=== PATIENT | male | born 1995 | race Native Hawaiian/Other Pacific Islander ===

== ENCOUNTER 2023-09-03 13:55 | Outpatient (AMB) | payer OTHER, SELFPAY ==
--- NOTE | 2023-09-03 14:00 | MHC.PC.OV ---
Vital Signs 09/03/23 14:02 Height 5 ft 4 in Weight 96 lb 4 oz BMI 16.5 BP 110/78 Blood Pressure Location Lt brachial Position Sitting Pulse 96 Pulse Source Pulse Oximeter Pulse Oximetry (%) 98 Oxygen Delivery Method Room Air Intake Visit Reasons: New Patient/ Requesting PE/NEEDS PHQ9+THRIVE Intake Note: Patient is a new patient here to establish care for Heart murmur, Asthma, Scoliosis of the spine and neck, High blood pressure, Migraine, developmental delay, cyst in bone of left shoulder. Transferring care from Dr Montes De Oca([facility]). Medical records have not been requested and have not received. Motor Block Mechanic Required: No Aircraft Mechanic Structures: Present Accompanied by: Mother Allergies Penicillins Allergy (Intermediate, Verified 09/03/23 14:53) Rash Medication List - Last Reconciled 09/03/23 by Matthew Murray MD Unobtainable Tobacco use date assessed: 09/03/23 Dental Screening Dental Screen Date: 09/03/23 Did you have a dental visit in the last 12 months?: Yes Did you have a dental problem in the last 6 months where you did not have access to dental care?: No Was dental information given to patient?: Patient has dentist HPI New Patient/ Requesting PE/NEEDS PHQ9+THRIVE HPI Details 28-year-old male presents to the office to establish his care and requesting a physical. Patient is accompanied by his mother. Patient has learning disability, developmental disability since childhood. He communicates very little. His mother is speaking on his behalf. He is disabled. Mother is requesting social worker to help take him to different appointments. He lives with his sister. Needs assistance for cooking. Patient also does not take care of his personal hygiene well and needs to be constantly reminded. As a child he was diagnosed with scoliosis and a heart murmur. His mother is worried about the stability of the C-spine. Patient spends most of his time at home watching TV or playing video games. [facility] Medical History Developmental disability Learning disability Surgical History No pertinent past surgical history Family History Other Mental health disorder Substance use disorder Social History Housing: House Alcohol intake: never Patient Tobacco Use Status: Never used Tobacco e-Cigarette/Vaping Use: Never Used Second Hand Smoke Exposure: No service: No Current occupational status: disabled Cognitive needs: No Hearing needs: No Vision needs: Yes (glasses) Questionnaire PHQ-9 Over the last 2 weeks, how often have you been bothered by any of the following problems? 1. Little interest or pleasure in doing things: not at all 2. Feeling down, depressed, or hopeless: not at all 3. Trouble falling or staying asleep, or sleeping too much: not at all 4. Feeling tired or having little energy: not at all 5. Poor appetite or overeating: not at all 6. Feeling bad about yourself - or that you are a failure or have let yourself or your family down: not at all 7. Trouble concentrating on things, such as reading the newspaper or watching television: not at all 8. Moving or speaking so slowly that other people could have noticed. Or the opposite - being so fidgety or restless that you have been moving around a lot more than usual: not at all 9. Thoughts that you would be better off or of hurting yourself in some way: not at all Total score: 0 Depression Screening Interpretation: Negative Depression Screening Done: Yes Source: Developed by Drs. Allen Ozuna, Christina Becah, Edgard Delong and colleagues, with an educational luma from [employer]. Thrive Questionnaire Date Thrive assessed: 09/03/23 I am a: Patient What is your living situation today?: I have a steady place to live Within the past 12 months, did the food you bought not last and you didn't have the money to get more?: Never true Within the past 12 months, did you worry whether your food would run out before you got money to buy more?: Never true Do you have trouble paying for medicines?: No Do you have trouble getting transportation to medical appointments?: Yes Do you have trouble paying your heating and electricity bill?: No Do you have trouble taking care of your child, family member or friend?: No Do you have trouble with day-to-day activities such as bathing, preparing meals, shopping, managing finances, etc.?: No Are you currently unemployed and looking for a job?: No Are you interested in more education?: No Currently or been in a relationship where the following occur: no concerns reported THRIVE Score: 1 AUDIT C Alcohol Use Questionnaire (AUDIT-C) 1. How often do you have a drink containing alcohol?: Never Total Score: 0 FAWN-7 AMB Questionnaire FAWN-7 Date FAWN - 7 assessed: 09/03/23 Feeling nervous, anxious, or on edge: 1 = Several days Not being able to stop or control worryin = Not at all Worrying too much about different things: 0 = Not at all Trouble relaxin = Not at all Being so restless that it is hard to sit still: 0 = Not at all Becoming easily annoyed or irritable: 1 = Several days (depending on situation) Feeling afraid as if something awful might happen: 0 = Not at all Total FAWN-7 score (0-4 normal; 5-9 mild; 10-14 moderate; 15-21 severe): 2 Source: Developed by Drs. Allen Ozuna, Christina Beach, Edgard Delong and colleagues, with an educational luma from [employer]. Physical exam (Primary Care) Vital Signs: Last Vital Signs Pulse 96 09/03/23 14:02 BP 110/78 09/03/23 14:02 Pulse Ox 98 09/03/23 14:02 Oxygen Delivery Method Room Air 09/03/23 14:02 Care Plan Goal for BP management: Blood pressure is in range. BMI result Body Mass Index 16.5 BMI Assessment/Plan discussion: Low (High-calorie nutritional drinks suggested.) Tobacco/Smoking Status: Tobacco use Status Tobacco use date assessed 09/03/23 09/03/23 14:16 Patient Tobacco Use Status Never used Tobacco 09/03/23 14:16 e-Cigarette/Vaping Use Never Used 09/03/23 14:16 PHQ-9: PHQ-9 Score PHQ-9: Total score 0 09/03/23 14:16 Depression Screening Interpretation: Negative Thrive Assessment: Date of Thrive Assessment Date Thrive assessed 09/03/23 09/03/23 14:16 Currently or been in a relationship where the following occur: no concerns reported Const Other: Does not verbalize answers. Able to say hello and thank you. General: cooperative and healthy appearing Nutritional Appearance: well nourished Limitations: no limitations HENMT Head: Yes normal to inspection Eyes General: appearance normal, both eyes and all related structures Neck Other: C-spine: No tenderness. Neck: Yes normal visual inspection and Yes full ROM Chest Chest palpation & inspection: normal palpation of entire chest wall Resp Effort & Inspection: normal respiratory effort Cardio Other: S1-S2. No heart murmur appreciated. GI Inspection: Yes normal to inspection Palpation (GI): Soft to palpation and No hepatosplenomegaly present Percussion: Yes normal to percussion Auscultation: normal bowel sounds Back/Spine/Pelvis Other: No CVA tenderness. Minimal scoliosis appreciated Assessment and Plan Assessment & Plan (1) Developmental disability: Code(s): F89 - Unspecified disorder of psychological development Plan: Condition has been documented. (2) Learning disability: Code(s): F81.9 - Developmental disorder of scholastic skills, unspecified Plan: Condition has been documented. guidance services coordinator requested. (3) Scoliosis: Code(s): M41.9 - Scoliosis, unspecified Plan: X-ray of the thoracolumbar spine and C-spine has been requested. This is to document scoliosis. Coding Level of Care Code New Pt Prev Care 18-39yr(94111 Diagnoses Developmental disability F89 Learning disability F81.9 Scoliosis M41.9
[2023-09-03 14:02] VITALS: BP 110/78; PULSE 96; O2SAT 98; BMI 16.5
== END 2023-09-03 14:50 | disposition home or self-care (01) ==
PROVIDERS: PCP Nurse Practitioner Family; Visit Provider Internal Medicine
DX: Z00.00 Encounter for general adult medical examination without abnormal findings (principal); F89 Unspecified disorder of psychological development; M41.9 Scoliosis, unspecified; F81.9 Developmental disorder of scholastic skills, unspecified
CPT/HCPCS: 99385

== ENCOUNTER 2023-09-03 15:09 | Outpatient (REF) | payer OTHER, SELFPAY ==
--- NOTE | ~2023-09-03 | XR_ITS ---
EXAMINATION: XR CERVICAL SPINE, THORACIC SPINE, LUMBAR SPINE RADIOGRAPHS CLINICAL INFORMATION: Scoliosis unspecified. COMPARISON: None available. TECHNIQUE: 3 views of the cervical spine. 3 views of the thoracic spine. 3 views of the lumbar spine. FINDINGS: Cervical Spine: Cervical vertebral body heights and disc space heights are preserved. Alignment maintained. Mild spondylosis in the [id number]-vm-[id number] cervical spine. Thoracic Spine: Mild multilevel degenerative changes in the thoracic spine. Thoracic vertebral body heights are preserved. Minimal thoracolumbar scoliosis. Lumbar Spine: Surgical clips in the right upper quadrant of the abdomen. Facet arthritis in the lower lumbar spine. Lumbar vertebral body heights and alignment are preserved. Mild multilevel lumbar spondylosis. Lumbar disc space heights are preserved. XR/XR lumbar spine 2-3V IMPRESSION: 1. Mild multilevel degenerative changes in the cervical, thoracic and lumbar spine. 2. Facet arthritis in the lower lumbar spine. 3. Minimal thoracolumbar scoliosis.
--- NOTE | ~2023-09-03 | XR_ITS ---
EXAMINATION: XR CERVICAL SPINE, THORACIC SPINE, LUMBAR SPINE RADIOGRAPHS CLINICAL INFORMATION: Scoliosis unspecified. COMPARISON: None available. TECHNIQUE: 3 views of the cervical spine. 3 views of the thoracic spine. 3 views of the lumbar spine. FINDINGS: Cervical Spine: Cervical vertebral body heights and disc space heights are preserved. Alignment maintained. Mild spondylosis in the [id number]-mc-uswht cervical spine. Thoracic Spine: Mild multilevel degenerative changes in the thoracic spine. Thoracic vertebral body heights are preserved. Minimal thoracolumbar scoliosis. Lumbar Spine: Surgical clips in the right upper quadrant of the abdomen. Facet arthritis in the lower lumbar spine. Lumbar vertebral body heights and alignment are preserved. Mild multilevel lumbar spondylosis. Lumbar disc space heights are preserved. XR/XR cervical spine 3V IMPRESSION: 1. Mild multilevel degenerative changes in the cervical, thoracic and lumbar spine. 2. Facet arthritis in the lower lumbar spine. 3. Minimal thoracolumbar scoliosis.
--- NOTE | ~2023-09-03 | XR_ITS ---
EXAMINATION: XR CERVICAL SPINE, THORACIC SPINE, LUMBAR SPINE RADIOGRAPHS CLINICAL INFORMATION: Scoliosis unspecified. COMPARISON: None available. TECHNIQUE: 3 views of the cervical spine. 3 views of the thoracic spine. 3 views of the lumbar spine. FINDINGS: Cervical Spine: Cervical vertebral body heights and disc space heights are preserved. Alignment maintained. Mild spondylosis in the [id number]-td-[id number] cervical spine. Thoracic Spine: Mild multilevel degenerative changes in the thoracic spine. Thoracic vertebral body heights are preserved. Minimal thoracolumbar scoliosis. Lumbar Spine: Surgical clips in the right upper quadrant of the abdomen. Facet arthritis in the lower lumbar spine. Lumbar vertebral body heights and alignment are preserved. Mild multilevel lumbar spondylosis. Lumbar disc space heights are preserved. XR/XR thoracic spine 3V IMPRESSION: 1. Mild multilevel degenerative changes in the cervical, thoracic and lumbar spine. 2. Facet arthritis in the lower lumbar spine. 3. Minimal thoracolumbar scoliosis.
[2023-09-03 17:26] LABS: Hematocrit 45.5 % (42.0-52.0); Mean Corpuscular HGB Conc 35.2 g/dl (31.0-36.0); Mean Corpuscular Hemoglobin 29.7 pg (27.0-33.0); Mean Corpuscular Volume 84.6 fL (80.0-98.0); Mean Platelet Volume 8.9 fL (9.4-12.4); Platelet Count 219 X10*3/uL (160-400); Red Blood Count 5.38 X10*6/uL (4.60-5.80); Red Cell Distribution Width 12.5 % (11.0-16.0)
[2023-09-03 18:06] LABS: Erythrocyte Sedimentation Rate 4 MM/HR (0-15)
[2023-09-03 18:19] LABS: Alanine Aminotransferase 13 U/L (0-40); Albumin Level 4.7 g/dL (3.5-5.0); Alkaline Phosphatase 79 U/L (39-117); Anion Gap 15 (12-20); Aspartate Amino Transferase 18 U/L (5-37); Bilirubin Direct 0.1 mg/dL (0.0-0.5); Bilirubin Total 0.4 mg/dL (0.0-1.0); Blood Urea Nitrogen 11 mg/dL (9-16); Carbon Dioxide 27 mmol/L (22-29); Chloride 103 mmol/L (96-108); Cholesterol 188 mg/dL (<200); Estimated Glomerular Filt Rate > 60; Glucose Random 81 mg/dL (60-115); HDL Cholesterol 40 mg/dL (>40); LDL Cholesterol Calculated 130 mg/dL (<100); Potassium 3.5 mmol/L (3.3-5.1); Sodium 141 mmol/L (135-145); Total Protein 7.9 g/dL (6.5-8.0); Triglycerides 90 mg/dL (<150)
[2023-09-03 18:33] LABS: Thyroid Stimulating Hormone 1.54 uIU/mL (0.32-4.0)
== END 2023-09-03 15:10 | disposition home or self-care (01) ==
LOC: HO.XRAY 15:09
PROVIDERS: PCP Internal Medicine; Visit Provider Internal Medicine
DX: Z00.00 Encounter for general adult medical examination without abnormal findings (principal); M41.9 Scoliosis, unspecified
CPT/HCPCS: 36415; 72040; 72072; 72100; 80048; 80061; 80076; 84443; 85027; 85652

== ENCOUNTER 2023-09-04 10:48 | Outpatient (REF) | payer OTHER, SELFPAY ==
[2023-09-04 14:29] LABS: Appearance Urine Clear; Color Urine Yellow; Glucose Urine UA Negative (Negative); Leukocyte Esterase Urine Negative (Negative); Nitrite Urine Negative (Negative); Specific Gravity - Urine 1.015 (1.005-1.025); Urine Blood Negative (Negative); Urine Ketones 40 mg/dL (Negative); Urine Protein Negative (Neg-Trace)
== END 2023-09-04 10:49 | disposition home or self-care (01) ==
LOC: HO.LAB 10:48
PROVIDERS: PCP Internal Medicine; Visit Provider Internal Medicine
DX: Z00.00 Encounter for general adult medical examination without abnormal findings (principal)
CPT/HCPCS: 81003

== ENCOUNTER 2023-10-08 14:24 | Outpatient (AMB) | payer OTHER, SELFPAY ==
--- NOTE | 2023-10-08 14:28 | MHC.PC.OV ---
Vital Signs 10/08/23 14:30 Height 5 ft 4 in Weight 97 lb 6 oz BMI 16.7 BP 140/90 H Blood Pressure Location Rt brachial Position Sitting Pulse 110 H Pulse Source Pulse Oximeter Pulse Oximetry (%) 100 Oxygen Delivery Method Room Air Intake Visit Reasons: High BP Intake Note: Patient is here to follow up on High BP, light headedness, some headaches. Director Of Database Marketing Required: No Clock And Watch Hands Mounter: Present Accompanied by: Sister Allergies Penicillins Allergy (Intermediate, Verified 10/15/23 14:54) Rash Medication List - Last Reconciled 10/15/23 by Matthew Murray MD Unobtainable Tobacco use date assessed: 10/08/23 Dental Screening Dental Screen Date: 09/03/23 HPI High BP HPI Details 28 yr old male presents to the office to discuss his elevated BP. He does not communicate and female attendant is speaking on his behalf. Purchased a BP cuff over the weekend and have been recording BP at home. Consistently they have been elevated. Systolic BP in the range of 150-180 and diastolic BP in the range of 80-100. [facility] Medical History Developmental disability Learning disability Surgical History No pertinent past surgical history Family History Other Mental health disorder Substance use disorder Social History Housing: House Alcohol intake: never Patient Tobacco Use Status: Never used Tobacco e-Cigarette/Vaping Use: Never Used Second Hand Smoke Exposure: No service: No Current occupational status: disabled Cognitive needs: No Hearing needs: No Vision needs: Yes (glasses) Questionnaire Thrive Questionnaire Date Thrive assessed: 09/03/23 FAWN-7 AMB Questionnaire FAWN-7 Date FAWN - 7 assessed: 09/03/23 Source: Developed by Drs. Allen Ozuna, Christina Beach, Edgard Delong and colleagues, with an educational luma from [employer]. Physical exam (Primary Care) Vital Signs: Last Vital Signs Pulse 110 H 10/08/23 14:30 BP 140/90 H 10/08/23 14:30 Pulse Ox 100 10/08/23 14:30 Oxygen Delivery Method Room Air 10/08/23 14:30 BMI result Body Mass Index 16.7 Tobacco/Smoking Status: Tobacco use Status Tobacco use date assessed 10/08/23 10/08/23 14:36 Patient Tobacco Use Status Never used Tobacco 10/08/23 14:36 e-Cigarette/Vaping Use Never Used 10/08/23 14:36 Thrive Assessment: Date of Thrive Assessment Date Thrive assessed 09/03/23 10/08/23 14:36 Assessment and Plan Assessment & Plan (1) Elevated BP without diagnosis of hypertension: Code(s): R03.0 - Elevated blood-pressure reading, without diagnosis of hypertension Plan: Advised to record BP for one more week. Advised them to use more than one machine to check BP. Coding Level of Care Code Est Pt Level 3 (33679) Diagnoses Elevated BP without diagnosis of hypertension R03.0
[2023-10-08 14:30] VITALS: BP 140/90; PULSE 110; O2SAT 100; BMI 16.7
== END 2023-10-08 15:50 | disposition home or self-care (01) ==
PROVIDERS: PCP Internal Medicine; Visit Provider Internal Medicine
DX: R03.0 Elevated blood-pressure reading, without diagnosis of hypertension (principal)
CPT/HCPCS: 99213

== ENCOUNTER 2024-03-11 14:59 | Outpatient (AMB) | payer OTHER, SELFPAY ==
--- NOTE | 2024-03-11 15:03 | MHC.PC.OV ---
Vital Signs 03/11/24 15:04 Height 5 ft 4 in Weight 100 lb 6 oz BMI 17.2 BP 126/76 Blood Pressure Location Lt brachial Position Sitting Pulse 81 Pulse Source Pulse Oximeter Pulse Oximetry (%) 100 Oxygen Delivery Method Room Air Intake Visit Reasons: 6mth f/u Intake Note: Patient is here to follow up on Developmental Disability. Complaint of cough with congestion for the last two week. OTC does not help. Color Developer Required: No Safety Engineer Pressure Vessels: Present Accompanied by: Sister Allergies Penicillins Allergy (Intermediate, Verified 03/11/24 15:04) Rash Tobacco use date assessed: 03/11/24 Dental Screening Dental Screen Date: 09/03/23 HPI 6mth f/u HPI Details Patient presents for a sick visit. Reporting symptoms of sinus congestion, sore throat and difficulty swallowing. Low-grade fever. No family member is sick. No recent travel. Patient reports symptoms of malaise and fatigue. [facility] Medical History Developmental disability Learning disability Surgical History No pertinent past surgical history Family History Other Mental health disorder Substance use disorder Social History Housing: House Alcohol intake: never Patient Tobacco Use Status: Never used Tobacco e-Cigarette/Vaping Use: Never Used Second Hand Smoke Exposure: No service: No Current occupational status: disabled Cognitive needs: No Hearing needs: No Vision needs: Yes (glasses) Questionnaire Thrive Questionnaire Date Thrive assessed: 09/03/23 Are you currently unemployed and looking for a job?: I choose not to answer this question FAWN-7 AMB Questionnaire FAWN-7 Date FAWN - 7 assessed: 09/03/23 Source: Developed by Drs. Allen Ozuna, Christina Beach, Edgard Delong and colleagues, with an educational luma from [employer]. Physical exam (Primary Care) Vital Signs: Last Vital Signs Pulse 81 03/11/24 15:04 BP 126/76 03/11/24 15:04 Pulse Ox 100 03/11/24 15:04 Oxygen Delivery Method Room Air 03/11/24 15:04 BMI result Body Mass Index 17.2 Tobacco/Smoking Status: Tobacco use Status Tobacco use date assessed 03/11/24 03/11/24 15:09 Patient Tobacco Use Status Never used Tobacco 03/11/24 15:09 e-Cigarette/Vaping Use Never Used 03/11/24 15:09 Thrive Assessment: Date of Thrive Assessment Date Thrive assessed 09/03/23 03/11/24 15:09 Const General: cooperative and healthy appearing Nutritional Appearance: well nourished Orientation/consciousness: patient oriented x3 Limitations: no limitations HENMT Head: Yes normal to inspection Eyes General: appearance normal, both eyes and all related structures Neck Neck: Yes normal visual inspection Chest Chest palpation & inspection: normal palpation of entire chest wall Resp Effort & Inspection: normal respiratory effort Neuro General: patient oriented x3 Assessment and Plan Assessment & Plan (1) Upper respiratory tract infection: Code(s): J06.9 - Acute upper respiratory infection, unspecified Plan: Antibiotics ordered. Increase fluid intake. Tylenol for aches and pains. If symptoms worsen, follow-up here for a recheck. Coding Level of Care Code Est Pt Level 3 (15662) Complex EM visit Add On G2211 Diagnoses Upper respiratory tract infection J06.9
[2024-03-11 15:04] VITALS: BP 126/76; PULSE 81; O2SAT 100; BMI 17.2
== END 2024-03-11 16:13 | disposition home or self-care (01) ==
PROVIDERS: PCP Internal Medicine; Visit Provider Internal Medicine
DX: J06.9 Acute upper respiratory infection, unspecified (principal)

== ENCOUNTER → 2024-03-11 14:59 | Outpatient (BNVA) | payer OTHER, SELFPAY | PROVIDERS: PCP Internal Medicine; Visit Provider Internal Medicine | DX: J06.9 Acute upper respiratory infection, unspecified (principal) | CPT/HCPCS: 99212 ==

== ENCOUNTER 2024-03-24 14:55 | Outpatient (AMB) | payer OTHER, SELFPAY ==
--- NOTE | 2024-03-24 15:15 | MHC.PC.OV ---
Vital Signs 03/24/24 15:19 Height 5 ft 4 in Weight 99 lb 8 oz BMI 17.1 BP 124/78 Blood Pressure Location Lt brachial Position Sitting Pulse 98 Pulse Source Pulse Oximeter Pulse Oximetry (%) 99 Oxygen Delivery Method Room Air Intake Visit Reasons: 6 month f/u Intake Note: Patient is here to follow up on Coughing, Learning disability, developmental disability. Cornetist Required: No Phlebotomy Technician: Present Accompanied by: Sister Allergies Penicillins Allergy (Intermediate, Verified 03/24/24 16:07) Rash Tobacco use date assessed: 03/24/24 Dental Screening Dental Screen Date: 09/03/23 HPI 6 month f/u HPI Details 29-year-old male presents to the office for a routine follow-up. Upper respiratory tract infection symptoms have subsided. He does still have a nonproductive cough. Sister interpreting for him. Blood pressure has been stable. [facility] Medical History Developmental disability Learning disability Surgical History No pertinent past surgical history Family History Other Mental health disorder Substance use disorder Social History Housing: House Alcohol intake: never Patient Tobacco Use Status: Never used Tobacco e-Cigarette/Vaping Use: Never Used Second Hand Smoke Exposure: No service: No Current occupational status: disabled Cognitive needs: No Hearing needs: No Vision needs: Yes (glasses) Questionnaire Thrive Questionnaire Date Thrive assessed: 09/03/23 Are you currently unemployed and looking for a job?: I choose not to answer this question FAWN-7 AMB Questionnaire FAWN-7 Date FAWN - 7 assessed: 09/03/23 Source: Developed by Drs. Allen Ozuna, Christina Beach, Edgard Delong and colleagues, with an educational luma from [employer]. Physical exam (Primary Care) Vital Signs: Last Vital Signs Pulse 98 03/24/24 15:19 BP 124/78 03/24/24 15:19 Pulse Ox 99 03/24/24 15:19 Oxygen Delivery Method Room Air 03/24/24 15:19 BMI result Body Mass Index 17.1 Tobacco/Smoking Status: Tobacco use Status Tobacco use date assessed 03/24/24 03/24/24 15:31 Patient Tobacco Use Status Never used Tobacco 03/24/24 15:31 e-Cigarette/Vaping Use Never Used 03/24/24 15:31 Thrive Assessment: Date of Thrive Assessment Date Thrive assessed 09/03/23 03/24/24 15:31 Const General: cooperative and healthy appearing Nutritional Appearance: well nourished Orientation/consciousness: patient oriented x3 Limitations: no limitations HENMT Head: Yes normal to inspection Eyes General: appearance normal, both eyes and all related structures Neck Neck: Yes normal visual inspection Chest Chest palpation & inspection: normal palpation of entire chest wall Resp Effort & Inspection: normal respiratory effort Neuro General: patient oriented x3 Office Procedures Flu Questionnaire Does the patient have a severe egg allergy?: No Does the patient have severe life threatening allergies?: No Does the patient have a fever or illness today?: No Has the patient ever had Guillain-[place] Syndrome?: No Has the patient ever had any past reaction to a flu shot?: No Immunizations Fluarix Triv [id number] (PF) 45 mcg (15 mcg x 3)/0.5 mL IM syringe Performing Provider: Matthew Murray MD Performing Location: [facility] – [place] [facility] Administered by: STEPHANI Burris on 03/24/24 16:06 Dose Route Admin Location Dispensed Lot Number Expiration Date [facility] Pipe Stripper 0.5 mL IM Right Deltoid 0.5 mL [id number] 12/20/24 [id number] [facility] Given Date VIS Provided VIS Publication Date 03/24/24 Single Vaccine 21 Eligibility Eligibility Date Funding Source Not [facility] Eligible 03/24/24 Private Coding Level of Care Code Est Pt Level 3 (04585) Complex EM visit Add On G2211 Diagnoses Developmental disability F89 Learning disability F81.9 Assessment & Plan Assessment & Plan (1) Developmental disability: Code(s): F89 - Unspecified disorder of psychological development Category: Medical Plan: Condition is stable. Flu shot given. No evidence of elevated blood pressure. (2) Learning disability: Code(s): F81.9 - Developmental disorder of scholastic skills, unspecified Category: Social Hx Plan: Condition is stable. Orders: Orders Influenza [id number] Immunization Today Z23 - Encounter for immunization Medications: New Fluarix Triv [id number] (PF) (flu vacc [id number] 6mos up(PF)) 0.5 mL IM ONCE 0.5 mL 0RF NS Z23 - Encounter for immunization
[2024-03-24 15:19] VITALS: BP 124/78; PULSE 98; O2SAT 99; BMI 17.1
== END 2024-03-24 16:09 | disposition home or self-care (01) ==
PROVIDERS: PCP Internal Medicine; Visit Provider Internal Medicine
DX: F89 Unspecified disorder of psychological development (principal); F81.9 Developmental disorder of scholastic skills, unspecified; Z23 Encounter for immunization

== ENCOUNTER → 2024-03-24 14:55 | Outpatient (BNVA) | payer OTHER, SELFPAY | PROVIDERS: PCP Internal Medicine; Visit Provider Internal Medicine | DX: Z23 Encounter for immunization (principal); F89 Unspecified disorder of psychological development; F81.9 Developmental disorder of scholastic skills, unspecified | CPT/HCPCS: 90471; 90656; 99212 ==

== ENCOUNTER 2025-04-14 08:07 | Outpatient (AMB) | payer OTHER, SELFPAY ==
--- NOTE | 2025-04-14 08:15 | MHC.PC.OV ---
Vital Signs 04/14/25 08:17 Height 5 ft 4 in Weight 99 lb 4 oz BMI 17.0 BP 118/60 Blood Pressure Location Lt brachial Position Sitting Pulse 73 Pulse Source Pulse Oximeter Temp 96.8 F Temp Source Temporal Artery Scan Pulse Oximetry (%) 100 Oxygen Delivery Method Room Air Intake Visit Reasons: has cough Intake Note: Patient complains of Cough. 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 Accompanied by: Mother Allergies Penicillins Allergy (Intermediate, Verified 04/14/25 08:16) Rash Tobacco use date assessed: 04/14/25 Dental Screening Dental Screen Date: 04/14/25 Did you have a dental visit in the last 12 months?: Yes Did you have a dental problem in the last 6 months where you did not have access to dental care?: No Was dental information given to patient?: Patient has dentist [facility] Medical History Developmental disability Learning disability Surgical History No pertinent past surgical history Family History Other Mental health disorder Substance use disorder Social History Housing: House Alcohol intake: never Patient Tobacco Use Status: Never used Tobacco e-Cigarette/Vaping Use: Never Used Second Hand Smoke Exposure: No service: No Current occupational status: disabled Cognitive needs: No Hearing needs: No Vision needs: Yes (glasses) Questionnaire PHQ-9 Over the last 2 weeks, how often have you been bothered by any of the following problems? 1. Little interest or pleasure in doing things: not at all 2. Feeling down, depressed, or hopeless: not at all 3. Trouble falling or staying asleep, or sleeping too much: not at all 4. Feeling tired or having little energy: not at all 5. Poor appetite or overeating: not at all 6. Feeling bad about yourself - or that you are a failure or have let yourself or your family down: not at all 7. Trouble concentrating on things, such as reading the newspaper or watching television: not at all 8. Moving or speaking so slowly that other people could have noticed. Or the opposite - being so fidgety or restless that you have been moving around a lot more than usual: not at all 9. Thoughts that you would be better off or of hurting yourself in some way: not at all Total score: 0 Depression Screening Interpretation: Negative Depression Screening Done: Yes Source: Developed by Drs. Allen Ozuna, Christina Beach, Edgard Delong and colleagues, with an educational luma from [employer]. Thrive Questionnaire Date Thrive assessed: 04/14/25 I am a: Patient What is your living situation today?: I have a steady place to live Within the past 12 months, did the food you bought not last and you didn't have the money to get more?: Never true Within the past 12 months, did you worry whether your food would run out before you got money to buy more?: Never true Do you have trouble paying for medicines?: No Do you have trouble getting transportation to medical appointments?: No Do you have trouble paying your heating and electricity bill?: No Do you have trouble taking care of your child, family member or friend?: No Do you have trouble with day-to-day activities such as bathing, preparing meals, shopping, managing finances, etc.?: No Are you currently unemployed and looking for a job?: I choose not to answer this question Are you interested in more education?: No Please select the resources that you would like help with: None Currently or been in a relationship where the following occur: No concerns reported THRIVE Score: 0 AUDIT C Alcohol Use Questionnaire (AUDIT-C) 1. How often do you have a drink containing alcohol?: Never Total Score: 0 FAWN-7 AMB Questionnaire FAWN-7 Date FAWN - 7 assessed: 04/14/25 Feeling nervous, anxious, or on edge: 0 = Not at all Not being able to stop or control worryin = Not at all Worrying too much about different things: 0 = Not at all Trouble relaxin = Not at all Being so restless that it is hard to sit still: 0 = Not at all Becoming easily annoyed or irritable: 0 = Not at all Feeling afraid as if something awful might happen: 0 = Not at all Total FAWN-7 score (0-4 normal; 5-9 mild; 10-14 moderate; 15-21 severe): 0 Source: Developed by Drs. Allen Ozuna, Christina Beach, Edgard Delong and colleagues, with an educational luma from [employer]. Physical exam (Primary Care) Vital Signs: Last Vital Signs Temp 96.8 F 04/14/25 08:17 Pulse 73 04/14/25 08:17 BP 118/60 04/14/25 08:17 Pulse Ox 100 04/14/25 08:17 Oxygen Delivery Method Room Air 04/14/25 08:17 BMI result Body Mass Index 17.0 Tobacco/Smoking Status: Tobacco use Status Tobacco use date assessed 04/14/25 04/14/25 08:21 Patient Tobacco Use Status Never used Tobacco 04/14/25 08:21 e-Cigarette/Vaping Use Never Used 04/14/25 08:21 PHQ-9: PHQ-9 Score PHQ-9: Total score 0 04/14/25 08:41 Depression Screening Interpretation: Negative Thrive Assessment: Date of Thrive Assessment Date Thrive assessed 04/14/25 04/14/25 08:21 Currently or been in a relationship where the following occur: No concerns reported Office Procedures Flu Questionnaire Does the patient have a severe egg allergy?: No Does the patient have severe life threatening allergies?: No Does the patient have a fever or illness today?: No Has the patient ever had Guillain-[place] Syndrome?: No Has the patient ever had any past reaction to a flu shot?: No Immunizations Fluarix [id number] (PF) 45 mcg (15 mcg x 3)/0.5 mL IM syringe Performing Provider: Matthew Murray MD [facility] Administered by: Krysta Barragan RN on 04/14/25 08:40 Dose Route Admin Location Dispensed Lot Number Expiration Date NDC Organizational Effectiveness Director 0.5 mL IM Right Deltoid 0.5 mL [id number] 12/20/25 [id number] [employer] VIS Given Date VIS Provided VIS Publication Date 04/14/25 Single Vaccine 24 Eligibility Eligibility Date Funding Source Not [facility] Eligible 04/14/25 Private Coding Level of Care Code Est Pt Level 3 (53356) Complex EM visit Add On G2211 Diagnoses Cough R05.9 Assessment & Plan Assessment & Plan (1) Cough: Code(s): R05.9 - Cough, unspecified Plan: History of Present Illness - The patient is a 30-year-old male presenting with a cough. - The cough has persisted for one month without any associated sputum production. - The patient denies fever and shortness of breath. - Preventative care includes a discussion about receiving the influenza vaccination, which the patient received last year. Social History Review of Systems - Respiratory: Reports cough for one month. Denies dyspnea. - General: Denies fever. Physical Exam General: Cooperative and healthy appearing Nutritional Appearance: Well nourished Orientation/consciousness: Patient oriented x3 Limitations: No limitations Head: Normal to inspection General: Appearance normal, both eyes and all related structures Neck: Normal visual inspection Chest: Normal palpation of entire chest wall Respiratory: Cough present for a month, no sputum production ormal respiratory effort Neurology: Patient oriented x3 Results Plan - Prescribe an antibiotic for five days to address the cough. - Administer the influenza vaccination as a preventative measure. Discussion Notes I discussed with the patient the plan to prescribe an antibiotic for his cough, which has persisted for a month. We also talked about the importance of receiving the influenza vaccination, which he agreed to receive today. Patient Instructions - Take the prescribed antibiotic for five days as directed. - Receive the influenza vaccination today. Orders: Orders Influenza [id number] Immunization Today Z23 - Encounter for immunization Medications: New azithromycin take 500 mg today (day 1), then 250 mg for 4 days (days 2-5) PO 6 tabs 0RF
[2025-04-14 08:17] VITALS: BP 118/60; PULSE 73; TEMP 36; O2SAT 100; BMI 17.0
--- OUTSIDE RECORDS SUMMARY | 2025-04-14 08:29 | XMS_ITS | Clinical Summary ---
Author Organization [employer] [facility] Building Address 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 06/12/2022 Active HYDROcodone-delroy taminophen (NORCO) 5-325 mg per tablet Take 1 tablet by mouth every 6 (six) hours if needed. Max Daily Amount: 4 tablets 03/27/2022 Active ibuprofen (ADVIL,MOTRIN) 600 mg tablet Take 1 tablet (600 mg total) by mouth. 08/21/2016 Active methocarbamoL (ROBAXIN) 500 mg tablet Take 1 tablet (500 mg total) by mouth 4 (four) times a day. 02/12/2023 Active naproxen (NAPROSYN) 500 mg tablet Take 1 tablet (500 mg total) by mouth. 03/05/2017 Active oxyCODONE (ROXICODONE) 5 mg immediate release tablet Take 1 tablet (5 mg total) by mouth every 6 (six) hours if needed. 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 03/05/2023 Social History Tobacco Use Types Packs/Day Years Used Date Smoking Tobacco: Never Assessed Sex and Gender Information Value Date Recorded Sex Assigned at Not on file Legal Sex Male 5:42 PM EST Gender Identity Not on file Sexual Orientation Not on file Obstetrics History Last Filed Vital Signs Vital Sign Reading Time Taken Comments Blood Pressure 124/98 06/29/2024 9:39 AM EST Pulse 82 06/29/2024 9:39 AM EST Temperature - - Respiratory Rate - - Oxygen Saturation - - Inhaled Oxygen Concentration - - Weight 46.7 kg (103 lb) 06/29/2024 9:39 AM EST Height 162.6 cm (5' 4 ) 06/29/2024 9:39 AM EST Body Mass Index 17.68 06/29/2024 9:39 AM EST Plan of Treatment Upcoming Encounters Date Type Department Care Team (Late st Contact Info) Description 06/28/2025 11:30 AM EST Office Visit [facility] - [place] [address] [place] [address] [place] Powell MD [address] [place] [address] Health Maintenance Due Date Last Done Comments DTaP,Tdap,and Td Vaccines (1 - Tdap) 02/01/2012 Hepatitis B Vaccines (1 of 3 - 19+ 3-dose series) 02/01/2012 HPV Vaccines (1 - 3-dose SCD M series) 02/01/2020 HIV Screening 06/05/2022 Hepatitis C Screening 06/05/2022 Social Influencers of Health Screening 06/05/2022 Depression Screening 06/23/2024 COVID-19 Vaccine (1 - 2023-2 5 season) 2025 Influenza Vaccine (#1) 2025 RSV Immunization Adult Patie nts (1 - 1-dose 75+ series) 02/01/2068 HIB Vaccines Aged Out No longer eligi ble based on patient's age to complete this topic Hepatitis A Vaccines Aged Out No long er eligible based on patient's age to complete this topic IPV Vaccines Aged Out No longer eligi ble based on patient's age to complete this topic MMR Vaccines Aged Out No longer eligi ble based on patient's age to complete this topic Meningococcal ACWY Vaccine Aged Out N o longer eligible based on patient's age to complete this topic Meningococcal B Vaccine Aged Out No l onger eligible based on patient's age to complete this topic Pneumococcal Vaccine: Pediat rics (0 to 5 Years) and At-Risk Patients (6 to 49 Years) Aged Out No longer eligible b ased on patient's age to complete this topic RSV Immunization Patients Un adriana 20 months Aged Out No longer eligible b ased on patient's age to complete this topic Varicella Vaccines Aged Out No longer eligible based on patient's age to complete this topic Insurance Care Teams Upholstery Estimator Relationship Specialty Start Date End Date Andria Sheikh MD [address] [place] [phone] PCP - General Internal Medicine 06/25/24
== END 2025-04-14 08:42 | disposition home or self-care (01) ==
LOC: HO.HMCH 08:08
PROVIDERS: PCP Internal Medicine; Visit Provider Internal Medicine
DX: Z23 Encounter for immunization (principal); R05.9 Cough, unspecified

== ENCOUNTER → 2025-04-14 08:07 | Outpatient (BNVA) | payer OTHER, SELFPAY | PROVIDERS: PCP Internal Medicine; Visit Provider Internal Medicine | DX: R05.9 Cough, unspecified (principal); Z23 Encounter for immunization | CPT/HCPCS: 90471; 90656; 99212 ==